=== PATIENT | male | born 1970 | race Caucasian/White ===

== ENCOUNTER 2017-04-26 15:39 | Emergency (ER) | payer SELFPAY ==
[2017-04-26] MEDS ORDERED: Cephalexin 250 MG CAP ONE (16:09)
[2017-04-26] MEDS ORDERED: Cephalexin 500 MG CAP ONE (16:09)
[2017-04-26] MEDS ORDERED: Triple Antibiotic Oint 1 GM Packet ONE (16:40)
--- NOTE | 2017-04-26 17:00 | RAD ---
LEFT KNEE TWO VIEWS: History: Injury, left knee pain. FINDINGS/IMPRESSION: No fracture or dislocation is seen. No radiopaque foreign bodies identified. POS: H
== END 2017-04-26 17:18 | disposition home or self-care (01) ==
LOC: MADERS 15:39
DX: S81.032A Puncture wound without foreign body, left knee, initial encounter (principal); G40.909 Epilepsy, unspecified, not intractable, without status epilepticus; I25.10 Atherosclerotic heart disease of native coronary artery without angina pectoris; F17.210 Nicotine dependence, cigarettes, uncomplicated; I25.2 Old myocardial infarction; X58.XXXA Exposure to other specified factors, initial encounter